=== PATIENT | female | born 1980 | race Hispanic/Latino ===

== ENCOUNTER 2017-09-02 19:40 | Emergency (ER) | payer SELFPAY ==
[2017-09-02] MEDS ORDERED: CIPROFLOXACIN HCL 0.2%/HYDROCORT 1% 10 ML OTIC SUSP ONE (19:59)
== END 2017-09-02 20:15 | disposition home or self-care (01) ==
LOC: EDH 19:40
DX: H60.8X3 Other otitis externa, bilateral (principal)